=== PATIENT | male | born 1975 | race Caucasian/White ===

== ENCOUNTER 2018-01-31 20:50 | Emergency (ER) | payer BC ==
[~2018-01-31] VITALS: Ht 182.9 cm; Wt 128.0 kg
[2018-01-31 20:50] VITALS: BP 150/102
--- NOTE | 2018-01-31 20:53 | ED.ADGEN ---
Adult General Chief Complaint Chief Complaint " My runs a [employer].. and Ronni a Labrador retriever.. got into it with another dog... and I went to break it up... and he got my index finger..."( Lt.) HPI HPI Patient is a 42 year old male who presents with above hx and complaints of dog bite on Lt. hand. No obvious poorly up-to-date with vaccinations. No abnormal behavior noted by dog. Patient has a 2 cm laceration to left index finger. Has good range of motion. Distal sensation intact. No other injury noted. Patient up -to-date with vaccinations. No history of travel. No history of ill contacts. Patient normally healthy. Dog will be under observation for the next 2 weeks. Review of Systems Review of Systems Constitutional: Denies fever or chills [] Eyes: Denies change in visual acuity, redness, or eye pain [] HENT: Denies nasal congestion or sore throat [] Respiratory: Denies cough or shortness of breath [] Cardiovascular: No additional information not addressed in HPI [] GI: Denies abdominal pain, nausea, vomiting, bloody stools or diarrhea [] : Denies dysuria or hematuria [] Musculoskeletal: Denies back pain or joint pain, Complaints of dog bite to left index finger Integument: Denies rash or skin lesions [] Neurologic: Denies headache, focal weakness or sensory changes [] Endocrine: Denies polyuria or polydipsia [] All other systems were reviewed and found to be within normal limits, except as documented in this note. Family History Family History Noncontributory Current Medications Current Medications Current Medications Medications (Trade) Dose Ordered Sig/Juan M Start Time Stop Time Status Last Admin Dose Admin Ceftriaxone Sodium (Rocephin Im) 1 gm 1X ONCE 01/31/18 21:30 01/31/18 21:31 DC 01/31/18 21:32 1 GM Hydrocodone Bitartrate/ Ibuprofen (Vicoprofen 7.5-200) 1 tab 1X ONCE 01/31/18 21:45 01/31/18 21:46 DC 01/31/18 21:35 1 TAB Lidocaine HCl 20 ml STK-MED ONCE 01/31/18 21:22 01/31/18 21:23 DC Tetanus/ Diphtheria Toxoids Adsorbed (Tenivac Vial) 0.5 ml ONCE ONCE 01/31/18 21:30 01/31/18 21:31 DC 01/31/18 21:33 0.5 ML Allergies Allergies Allergies Coded Allergies Type Severity Reaction Last Updated Verified No Known Drug Allergies 01/31/18 No Physical Exam Physical Exam Constitutional: Well developed, well nourished, no acute distress, non-toxic appearance. [] HENT: Normocephalic, atraumatic, bilateral external ears normal, oropharynx moist, no oral exudates, nose normal. [] Eyes: PERRLA, EOMI, conjunctiva normal, no discharge. [] Neck: Normal range of motion, no tenderness, supple, no stridor. [] Cardiovascular:Heart rate regular rhythm, no murmur [] Lungs & Thorax: Bilateral breath sounds clear to auscultation [] Abdomen: Bowel sounds normal, soft, no tenderness, no masses, no pulsatile masses. [] Skin: Warm, dry, no erythema, no rash. [] Back: No tenderness, no CVA tenderness. [] Extremities: No tenderness, no cyanosis, no clubbing, ROM intact, no edema. [] Except Left index finger dog bite as per history of present illness Neurologic: Alert and oriented X 3, normal motor function, normal sensory function, no focal deficits noted. [] Psychologic: Affect normal, judgement normal, mood normal. [] EKG EKG [] Radiology/Procedures Radiology/Procedures My interpretation x-ray shows no obvious fracture dislocation. Does have edema to left index finger[] Course & Med Decision Making Course & Med Decision Making Pertinent Labs and Imaging studies reviewed. (See chart for details). Finger cleaned with surgical soap. Finger irrigated with normal saline. Finger splinted by Archie tape. Patient take Augmentin 875 twice a day. Dog is to be under observation. Patient take Tylenol and ibuprofen pain. Patient to monitor for infection. Patient return of any concerns. Patient follow-up primary care. [] Final Impression Final Impression 1. Animal Bite[]- Dog bite to left index finger Dragon Disclaimer Dragon Disclaimer This electronic medical record was generated, in whole or in part, using a voice recognition dictation system. RATNA PRAJAPATI MD January 31, 2018 20:53
[2018-01-31] MEDS ORDERED: LIDOCAINE 1% Multi-Dose 20 ML VIAL. ONE (21:22)
[2018-01-31] MEDS ORDERED: AMOX1TAB61 PO (21:24)
[2018-01-31] MEDS ORDERED: TETANUS AND DIPHTHERIA TOX/PF 0.5 ML VIAL. VAX IM ONE (21:30)
[2018-01-31] MEDS ORDERED: cefTRIAXone IM 1 GM VIAL IM ONE (21:30)
[2018-01-31] MEDS ORDERED: HYDROcodon/IBUPROFEN 7.5/200MG 1 TAB TABLET PO ONE (21:45)
--- NOTE | 2018-01-31 21:46 | RAD ---
Three-view left hand radiographs 01/31/2018 CLINICAL HISTORY: Dog bite to the left second and third fingers. PA, lateral and oblique digital radiographs of the left hand were obtained. No fracture or dislocation of the left hand is seen. No radiopaque foreign body is noted. IMPRESSION: No fracture or dislocation of the left hand is seen. No radiopaque foreign body is noted. Electronically signed by: Darron Triplett MD (01/31/2018 9:43 PM) [facility]
== END 2018-01-31 21:50 | disposition home or self-care (01) ==
LOC: ER 20:50
DX: S61.251A Open bite of left index finger without damage to nail, initial encounter (principal); W54.0XXA Bitten by dog, initial encounter; Y93.89 Activity, other specified; Y99.8 Other external cause status; Y92.89 Other specified places as the place of occurrence of the external cause
CPT/HCPCS: 73130; 90471; 90714; 96372; 99284; J0696